=== PATIENT | female | born 1990 | race Caucasian/White ===

== ENCOUNTER 2016-11-16 20:26 | Emergency (ER) | payer OTHER | END 2016-11-16 21:08 | disposition home or self-care (01) | LOC: ER 20:26 | DX: N39.0 Urinary tract infection, site not specified (principal); J02.9 Acute pharyngitis, unspecified | CPT/HCPCS: 87651 ==

== ENCOUNTER 2016-11-18 10:22 | Emergency (ER) | payer OTHER | END 2016-11-18 12:29 | disposition home or self-care (01) | LOC: ER 10:22 | DX: E86.0 Dehydration (principal); N39.0 Urinary tract infection, site not specified; R00.0 Tachycardia, unspecified; J02.9 Acute pharyngitis, unspecified | CPT/HCPCS: 87651; 96361; 96365; 96375; J0696; J1885 ==

== ENCOUNTER 2016-11-18 20:58 | Emergency (ER) | payer OTHER | END 2016-11-19 00:09 | disposition home or self-care (01) | LOC: ER 20:58 | DX: J02.9 Acute pharyngitis, unspecified (principal) | CPT/HCPCS: 36415; 96361; 96374 ==